=== PATIENT | male | born 1990 | race Caucasian/White ===

== ENCOUNTER 2017-12-16 15:53 | Emergency (ER) | payer OTHER ==
[~2017-12-16] VITALS: Ht 170.2 cm; Wt 90.7 kg
[~2017-12-16 15:53] MED LIST: CEFADROXIL500 MG PO; METHYLPRED4 MG/DOSE- PO; TRAMADOL HCL50 MG PO
== END 2017-12-16 18:21 | disposition home or self-care (01) ==
LOC: ER 15:53
DX: M62.830 Muscle spasm of back (principal)

== ENCOUNTER 2018-03-20 16:28 | Outpatient (CLI) | payer OTHER | END 2018-03-20 16:43 | disposition home or self-care (01) | LOC: RAD 16:28 | DX: M79.652 Pain in left thigh (principal) ==

== ENCOUNTER 2025-05-11 10:41 | Inpatient (IN) | payer OTHER ==
[~2025-05-11] VITALS: Ht 165.1 cm; Wt 99.8 kg
[2025-05-11] MEDS ORDERED: FAMOTIDINE/PF 20 MG/2 ML VIAL ONE (11:27)
[2025-05-11] MEDS ORDERED: KETOROLAC TROMETHAMINE 30 MG VIAL ONE (11:27)
[2025-05-11] MEDS ORDERED: KETOROLAC TROMETHAMINE 30 MG VIAL IV ONE (11:30)
[2025-05-11] MEDS ORDERED: FAMOtidine 10 MG/ML (4ML VIAL) IV PUSH ONE (11:30)
[2025-05-11 11:56] LABS: BASO % 0.7 % (0.1-1.2); EOS # 0.33 (0.04-0.54); EOS % 4.7 % (0.7-7.0); LYMPH # 1.87 (1.18-3.74); LYMPH % 26.5 % (19.3-53.1); MEAN PLATELET VOLUME 10.30 fl (9.4-12.4); MONO # 0.51 (0.24-0.82); MONO % 7.2 % (4.7-12.5); NEUT # 4.27 (1.56-6.13); NEUT % 60.5 % (34.0-71.1); RED CELL DISTRIBUTION WIDTH 12.3 % (11.6-14.4)
[2025-05-11 12:13] LABS: INR 1.06
[2025-05-11 12:17] LABS: ALT/SGPT 47.0 U/L (12-78); AST/SGOT 17.0 U/L (15-37); BILIRUBIN TOTAL 0.5 mg/dL (0.3-1.2); BILIRUBIN,CONJUGATED 0.11 mg/dL (0.0-0.2); BUN CREA RATIO 17.0 (7.0-25.0); CREATININE SERUM 0.86 mg/dL (0.70-1.30); GFR 101.79; GLOBULINA 3.9 G/DL (2.4-3.5); GLUCOSE FASTING 74.0 mg/dL (65-100); OSMOLALITY SERUM 283.0 MOSM/KG (275-295)
[2025-05-11 13:12] LABS: URINE APPEARANCE Clear; URINE BILIRRUBIN Negative (NEGATIVE); URINE BLOOD Negative; URINE COLOR Yellow; URINE GLUCOSE Negative (NEGATIVE); URINE KETONE Trace (NEGATIVE); URINE LEUKOCYTE Negative; URINE NITRATE Negative; URINE PROTEIN Negative (NEGATIVE); URINE UROBILINOGEN 1.0 E.U./dl
[2025-05-11 13:16] LABS: URINE BACTERIA 7.1 uL (0.0-1933); URINE RBC 3.5 uL (0.0-20.8); URINE WBC 3.2 uL (0.0-23.2)
[2025-05-11 13:29] LABS: URINE CAST 0.00 uL (0.0-1.40); URINE EPITHELIAL CELLS 1.3 uL (0.0-38.8)
[2025-05-11] MEDS ORDERED: PIPERACILLIN/TAZOBACTAM SODIUM 3.375 GM VIAL IV SCH (14:44)
[2025-05-11] MEDS ORDERED: MORPHINE SULFATE 4 MG/ML CARTRIDGE IV PRN (14:45)
[2025-05-11] MEDS ORDERED: ONDANSETRON HCL 4 MG in DEXTROSE 5 % IN WATER 50 ML IV PRN (14:45)
[2025-05-11] MEDS ORDERED: PIPERACILLIN/TAZOBACTAM SODIUM 3.375 GM VIAL IV ONE ×2 (14:58→15:05)
[2025-05-11] MEDS ORDERED: 0.9 % SODIUM CHLORIDE 1,000 ML IV SCH (17:45)
[2025-05-11] MEDS ORDERED: ACETAMINOPHEN 325 MG TABLET PO PRN (17:45)
[2025-05-11 17:50] VITALS: BP 110/80
[2025-05-11 19:30] VITALS: BP 129/77; O2SAT 98
[2025-05-12 01:15] VITALS: BP 107/56; O2SAT 100
[2025-05-12] MEDS ORDERED: ACETAMINOPHEN 500 MG GEL..CAP PO PRN (07:45)
[2025-05-12 07:50] VITALS: BP 103/60; O2SAT 98
[2025-05-12] MEDS ORDERED: FAMOTIDINE/PF 20 MG/2 ML VIAL IV SCH ×2 (09:00→21:00)
[2025-05-12] MEDS ORDERED: SUGAMMADEX SODIUM 200 MG/2 ML VIAL IV ONE (16:14)
[2025-05-12] MEDS ORDERED: PIPERACILLIN/TAZOBACTAM SODIUM 3.375 GM VIAL IV ONE (17:09)
[2025-05-12 18:00] VITALS: BP 149/76; O2SAT 98
[2025-05-12 20:15] LABS: BASO % 0.1 % (0.1-1.2); EOS # 0.01 (0.04-0.54); EOS % 0.1 % (0.7-7.0); LYMPH # 0.97 (1.18-3.74); LYMPH % 6.0 % (19.3-53.1); MEAN PLATELET VOLUME 9.80 fl (9.4-12.4); MONO # 0.81 (0.24-0.82); MONO % 5.0 % (4.7-12.5); NEUT # 14.22 (1.56-6.13); NEUT % 88.4 % (34.0-71.1); RED CELL DISTRIBUTION WIDTH 12.1 % (11.6-14.4)
[2025-05-12 20:53] LABS: ALT/SGPT 63.0 U/L (12-78); AST/SGOT 35.0 U/L (15-37); BILIRUBIN TOTAL 0.61 mg/dL (0.3-1.2); BILIRUBIN,CONJUGATED 0.22 mg/dL (0.0-0.2)
[2025-05-13 00:30] VITALS: BP 118/73; O2SAT 99
[2025-05-13] MEDS ORDERED: PROTONIX40 MG PO ×4 (12:37→12:40)
[2025-05-13] MEDS ORDERED: TRAM1TAB98 PO ×2 (12:38)
[2025-05-13] MEDS ORDERED: PAIN RELIEVER500 M2 PO ×2 (12:39)
[2025-05-13] MEDS ORDERED: NAPR500T14 PO ×2 (12:43)
== END 2025-05-13 14:14 | disposition home or self-care (01) | DRG 419 ==
LOC: ER 10:42 → SURG 17:58 → SEC-K 17:58 → SURG 18:26
PROVIDERS: General Practice; Student in an Organized Health Care Education/Training Program; ADMIT Internal Medicine; ATTEND Internal Medicine
PROC: BW40ZZZ Ultrasonography of Abdomen (ICD-10-PCS; 2025-05-11)
PROC: 0FT44ZZ Resection of Gallbladder, Percutaneous Endoscopic Approach (ICD-10-PCS; principal; 2025-05-12 17:45)
DX: K80.20 Calculus of gallbladder without cholecystitis without obstruction (principal)

== ENCOUNTER → 2025-05-16 | Emergency (ER) | payer OTHER ==
[~2025-05-16] VITALS: Ht 167.6 cm; Wt 99.8 kg
[~2025-05-16] MED LIST changes: +NAPR500T14 PO; +PAIN RELIEVER500 M2 PO; +PROTONIX40 MG PO; +TRAM1TAB98 PO
[2025-05-16 18:16] LABS: BASO % 0.1 % (0.1-1.2); EOS # 0.04 (0.04-0.54); EOS % 0.3 % (0.7-7.0); LYMPH # 0.62 (1.18-3.74); LYMPH % 5.4 % (19.3-53.1); MEAN PLATELET VOLUME 10.20 fl (9.4-12.4); MONO # 0.08 (0.24-0.82); MONO % 0.7 % (4.7-12.5); NEUT # 10.73 (1.56-6.13); NEUT % 93.2 % (34.0-71.1); RED CELL DISTRIBUTION WIDTH 12.1 % (11.6-14.4)
[2025-05-16 19:04] LABS: ALT/SGPT 64.0 U/L (12-78); AST/SGOT 20.0 U/L (15-37); BILIRUBIN TOTAL 0.59 mg/dL (0.3-1.2); BUN CREA RATIO 19.0 (7.0-25.0); CREATININE SERUM 1.0 mg/dL (0.70-1.30); GFR 85.53; GLOBULINA 3.9 G/DL (2.4-3.5); GLUCOSE FASTING 177.0 mg/dL (65-100); OSMOLALITY SERUM 288.0 MOSM/KG (275-295)
== END | disposition home or self-care (01) ==
LOC: ER 14:51
PROVIDERS: General Practice
DX: M79.673 Pain in unspecified foot (principal); M79.672 Pain in left foot